=== PATIENT | male | born 1980 | race Caucasian/White ===

== ENCOUNTER 2017-12-11 23:02 | Emergency (ER) | payer OTHER ==
[~2017-12-11] VITALS: Ht 177.8 cm; Wt 114.7 kg
[2017-12-11] MEDS ORDERED: NORCO 5-325 TA1 EACH PO (23:19)
[2017-12-11] MEDS ORDERED: PREDNISONE 10 M10 MG PO (23:43)
[2017-12-11] MEDS ORDERED: INDOMETHACIN 5050 M1 PO (23:43)
[2017-12-11] MEDS ORDERED: NORCO 7.5-3251 EACH PO (23:43)
[2017-12-12 00:51] VITALS: BP 176/86
== END 2017-12-12 00:52 | disposition home or self-care (01) ==
LOC: M.ERS 23:02
DX: M10.9 Gout, unspecified (principal)

== ENCOUNTER 2020-04-13 20:24 | Inpatient (IN) | payer OTHER ==
[~2020-04-13] VITALS: Ht 175.3 cm; Wt 124.3 kg
[~2020-04-13 20:24] MED LIST: INDOMETHACIN 5050 M1 PO; NORCO 5-325 TA1 EACH PO; NORCO 7.5-3251 EACH PO; PREDNISONE 10 M10 MG PO
[2020-04-13 20:28] VITALS: BP 120/96
[2020-04-13 20:49] LABS: HEMATOCRIT 45.5 % (42.0-52.0); HEMOGLOBIN 15.4 gm/dL (14.0-18.0); MCH 29.6 pg (26.0-34.0); MCHC 33.8 g/dL (28.0-37.0); MCV 87.5 fL (80.0-100.0); NUCLEATED RBCS 0 /100WBC; PLATELET COUNT* 344 thou/uL (150-400); WBC 23.9 thou/uL (4.0-11.0)
[2020-04-13 20:57] LABS: CALCIUM 9.9 mg/dL (8.5-10.1); POTASSIUM 3.6 mmol/L (3.5-5.1)
[2020-04-13 20:59] LABS: INR 0.9; PROTIME 9.9 Seconds (9.20-11.50)
[2020-04-13 21:07] LABS: ALBUMIN 4.3 g/dL (3.4-5.0); MAGNESIUM 2.2 mg/dL (1.8-2.4); TOTAL BILIRUBIN 0.3 mg/dL (<0.1-1.0); TOTAL PROTEIN 7.8 g/dL (6.4-8.2)
[2020-04-13 21:10] VITALS: BP 127/79
[2020-04-13 21:15] LABS: ABSOLUTE EOSINOPHILS 0.5 thou/uL (0.0-0.7); ABSOLUTE LYMPHOCYTES 9.8 thou/uL (0.8-5.3); ABSOLUTE MONOCYTES 1.2 thou/uL (0.0-1.2); ABSOLUTE NEUTROPHILS 12.4 thou/uL (1.6-8.1); PLATELET ESTIMATE ADEQUATE
[2020-04-13 22:46] VITALS: BP 134/89
[2020-04-13 23:09] VITALS: BP 121/81
[2020-04-14] VITALS (17 sets, daily range): BP systolic 102–153; BP diastolic 40–91
[2020-04-14 02:34] LABS: HEMATOCRIT 44.8 % (42.0-52.0); HEMOGLOBIN 14.8 gm/dL (14.0-18.0); MCH 29.2 pg (26.0-34.0); MCHC 33.1 g/dL (28.0-37.0); MCV 88.3 fL (80.0-100.0); MPV 7.8 fl. (7.2-11.1); RBC 5.07 mil/uL (4.50-6.00); RDW-CV 14.3 % (10.5-14.5); WBC 16.5 thou/uL (4.0-11.0)
[2020-04-14 03:53] LABS: ALBUMIN 3.9 g/dL (3.4-5.0); ALKALINE PHOSPHATASE 93 U/L (46-116); ANION GAP 11 mmol/L (7-16); BUN 22 mg/dL (7-18); CALCIUM 9.3 mg/dL (8.5-10.1); CHLORIDE 103 mmol/L (98-107); CHOLESTEROL 145 mg/dL (<200); CO2 26 mmol/L (21-32); GLUCOSE 102 mg/dL (70-99); HDL CHOLESTEROL 34 mg/dL (>40); LDL CHOLESTEROL 82 mg/dL (<100); POTASSIUM 4.4 mmol/L (3.5-5.1); SGOT 496 U/L (15-37); SGPT 102 U/L (30-65); SODIUM 140 mmol/L (136-145); TC:HDL 4.3 Ratio (Not establshd); TOTAL BILIRUBIN 0.4 mg/dL (<0.1-1.0); TOTAL PROTEIN 6.6 g/dL (6.4-8.2); TRIGLYCERIDE 146 mg/dL (<150); VLDL 29 mg/dL (<40)
[2020-04-14 04:07] LABS: SERUM ASSESSMENT CLEAR
--- NOTE | 2020-04-14 09:03 | EKG ---
[place] [address] ELECTROCARDIOGRAM REPORT Name: GEORGES SYED Room: [address] IN ..#: [id number] Admission: 04/13/20 Attend Phys: Sean Caballero, Discharge: Date of : 76 Date of Service: 04/13/202032 Report #: [id number] THIS REPORT FOR: //name// [facility] ED Test Date: 2020-04-13 Test Time: 20:33:08 Pat Name: GEORGES SYED Department: Room: [facility] Gender: M Special Needs Nanny: : 1980 Requested By: Destiny Chung Order Number: [id number] MD: Dani Fox Measurements Intervals [place] Rate: 75 P: 67 [place]: 153 QRS: -27 QRSD: 142 T: -11 QT: 415 QTc: 464 Interpretive Statements Sinus rhythm Nonspecific intraventricular conduction delay Anterolateral infarct, acute (LAD) No previous ECG available for comparison Electronically Signed On 04-14-2020 9:03:43 TEAROOM HOST/HOSTESS by Dani Fox [email or web address] <ELECTRONICALLY SIGNED> By: Dani Fox MD, FACC 04/14/20902 32 32 Dani Fox MD, [facility] /EPI
--- NOTE | 2020-04-14 09:07 | EKG ---
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: [facility] : 1980 Requested By: Sean Caballero Order Number: [id number] Reading MD: Dani Fox Measurements Intervals [place] Rate: 81 P: 52 [place]: 159 QRS: 92 QRSD: 86 T: 77 QT: 397 QTc: 461 Interpretive Statements Sinus rhythm Probable anteroseptal infarct, recent Lateral leads are also involved Compared to ECG 04/13/2020 20:33:08 Intraventricular conduction delay no longer present Myocardial infarct finding still present Electronically Signed On 04-14-2020 9:07:12 RANGE TECHNICIAN by Dani Fox [email or web address] <ELECTRONICALLY SIGNED> By: Dani Fox MD, FACC 04/14/20 0907 0637 0637 Dani Fox MD, FACC /EPI
--- NOTE | 2020-04-14 11:26 | CARD ---
[address] [address] CARDIAC CATH REPORT Name: GEORGES SYED Room: [address] IN [facility]#: [id number] Admission: 04/13/20 Attend Phys: Sean Caballero MD Discharge: Date of : 76 Report #: [id number] THIS REPORT FOR: cc: FAM - No family physician/PCP FAM - No family physician/PCP ~ Brandyn Gonzalez MD APPROVED REPORT Study performed: 04/13/2020 20:56:58 Patient Details Patient Status: ED STEMI Room #: ICU-7 The patient is a 40 year-old male Event Personnel Brandyn Gonzalez Director Of Golf, Tanna Abdi RN Biophysics Teacher, Sandra Rae RTR Scrub, Yue Delacruz RTR Monitor Procedures Performed Art Access - R radial artery , Left Heart Cath w/or w/o Coronaries LHC, DILIP Place w/wo Plasty Single LAD STEMI, Hemostasis with Hemoband Indication Abnormal ECG, STEMI (>0 to less than or equal to 6 hours), Dyspnea, Chest pain Risk Factors Obesity, Hypercholesterolemia, Tobacco History () Admission/Lab Medications/Medications given during procedure Heparin IV 6000, Aggrastat IV Bolus 12.5 ml Procedure Narrative The patient was brought emergently to the Cardiac Catheterization Laboratory and was prepped and draped in a sterile manner. The right wrist was infiltrated with 1% Lidocaine subcutaneous anesthesia. A 6F Slender [place] sheath was inserted into the right radial artery. Coronary angiography was performed using coronary diagnostic catheters. The right coronary system was accessed and visualized with a 6F JR4 catheter. The left coronary system was accessed and visualized with a 6F XB 3.5 Guide catheter. The left ventricle was accessed and visualized with a 6[place] [address] CARDIAC CATH REPORT Name: GEORGES SYED Room: [address]#: [id number] Admission: 04/13/20 Attend Phys: Sean Caballero MD Discharge: Date of : 76 Report #: [id number] ventricular/Aortic Valve gradient assessed via catheter pullback. Left ventriculogram was performed in OROZCO projection. Closure device was deployed with a 6 Fr Vasc-Band Lng 27cm. The patient tolerated the procedure well and there were no complications associated with the procedure. There was no hematoma. Intraoperative Conscious Sedation Sedation start time: 21:18 Case end Time: 21:55 No sedation given. Fluoro Time: 13.8 minutes Dose: DAP 750413 cGycm2 2495 mGy Contrast Type and Amount: Visipaque 265 ml Coronary Angiography The patient's coronary anatomy is right dominant. Diagnostic Cath Left Main The left main artery is a patent vessel, with no flow-limiting lesions. LAD There is a total occlusion of the proximal LAD segment. Diagonal 1 There is a moderate-sized caliber vessel, patent with no flow-limiting lesions. Circumflex There is mild disease in the proximal left circumflex, 30%. OM1 There is an ostial stenosis of 40%. OM2 This is a small to moderate size caliber vessel, patent with no flow-limiting lesions. Right Coronary The RCA is a dominant vessel with mild disease in the midsegment. R PDA There is a ostial stenosis of 30%. RPLV This is a small to moderate size caliber vessel, patent with no flow-limiting lesions. Left Ventriculography The left ventricle is normal in size with Diminished contractility. The left ventricular ejection fraction is estimated to be 35%. Left ventricular wall motion abnormalities are present. There is hypokinesis of the anterior lateral and apical segments. Hemodynamics The aortic pressure is 100/68 mmHg with a mean of 85 mmHg. The left ventricular pressure is 101/12 mmHg with a mean of mmHg. The left ventricular end diastolic pressure is 25 [place] [address] CARDIAC CATH REPORT Name: YAHAIRAGEORGES Room: [address] IN [facility].#: [id number] Admission: 04/13/20 Attend Phys: Sean Caballero MD Discharge: Date of : 76 Report #: [id number] PCI Technique Lesion Anticoagulation was achieved with Heparin. Patient was given Aggrastat IV bolus 12.5 ml. Patient was preloaded with Heparin IV 3000 units. Percutaneous coronary intervention was performed on the proximal left anterior descending artery segment. The lesion stenosis prior to intervention was 100% with EFRA 0 flow. A 6FR XB 3.5 100CM Guide Catheter was used to engage the lm ostium. A Luge Wire 182 Interventional Guidewire was used to cross the lesion. BALLOON DILATION A Balloon catheter Trek RX 2.5 X 12 was inserted and inflated up to 12.00atm for 13seconds. STENT DEPLOYMENT A drug-eluting stent Zach RX Stent 3.0X15mm was inserted and inflated up to 16.00atm for 26seconds. POST STENT DEPLOYMENT BALLOON DILATION A Balloon catheter [place] Trek RX 3.5 X 8 was inserted and inflated up to 18.00atm for 17seconds. Additional Inflation: 18.00atm for 8seconds. Additional Inflation: 12.00atm for 14seconds. Final angiography reveals 0 % stenosis with EFRA 3 flow. Conclusion 1. Successful PCI with placement of a drug-eluting into the total occlusion in the proximal LAD segment, with sikhism of blood flow to the mid/distal LAD and first diagonal artery. 2. There is mild to moderate disease in the RCA and left circumflex arteries. 3. There is moderately severe LV dysfunction. 4. Recommend dual antiplatelet therapy and aggressive risk factor management. <ELECTRONICALLY SIGNED> By: Brandyn Gonzalez MD 04/14/20 1126 1126 1126Brandyn Gonzalez MD /INF
--- NOTE | 2020-04-14 15:53 | EKG ---
[place] [address] ELECTROCARDIOGRAM REPORT Name: GEORGES SYED Room: [address] ADM IN ..#: [id number] Admission: 04/13/20 Attend Phys: Sean Caballero, Discharge: Date of : 76 Date of Service: 04/14/20 1048 Report #: [id number] THIS REPORT FOR: //name// [facility] Test Date: 2020-04-14 Test Time: 10:48:58 Pat Name: GEORGES SYED Department: Room: [address] Gender: M Access Lead: UNKNOWN : 1980 Requested By: Laura Rosenberg Order Number: [id number] Jarrod MD: Dani Fox Measurements Intervals [place] Rate: 72 P: 11 ME: 166 QRS: 91 QRSD: 84 T: 97 QT: 459 QTc: 503 Interpretive Statements Incomplete analysis due to missing data in precordial lead(s) Sinus rhythm Anterolateral infarct, acute (LAD) Prolonged QT interval Baseline wander in lead(s) V6 Missing lead(s): V2,V3 Compared to ECG 04/14/2020 06:37:39 Prolonged QT interval now present Myocardial infarct finding still present Electronically Signed On 04-14-2020 15:53:07 USER INTERFACE DEVELOPER by Dani Fox [email or web address] <ELECTRONICALLY SIGNED> By: Dani Fox MD, [facility] 04/14/20 1553 1048 1048 Dani Fox MD, [facility] /EPI
[2020-04-15] VITALS (8 sets, daily range): BP systolic 103–131; BP diastolic 53–78
[2020-04-15 04:25] LABS: HEMATOCRIT 45.3 % (42.0-52.0); MCH 29.3 pg (26.0-34.0); MCHC 33.2 g/dL (28.0-37.0); MCV 88.3 fL (80.0-100.0); MPV 8.1 fl. (7.2-11.1); RBC 5.13 mil/uL (4.50-6.00); RDW-CV 14.2 % (10.5-14.5); WBC 13.3 thou/uL (4.0-11.0)
[2020-04-15 04:46] LABS: CALCIUM 9.6 mg/dL (8.5-10.1); POTASSIUM 3.7 mmol/L (3.5-5.1)
[2020-04-15 05:16] LABS: TROPONIN-I LEVEL 66.18 ng/mL (<0.06)
--- NOTE | 2020-04-15 09:27 | CON ---
[address] [address] CONSULTATION Name: GEORGES SYED Room: [address] IN .R.#: [id number] Admission: 04/13/20 Attend Phys: Sean Caballero MD Discharge: Date of : 76 Report #: [id number] THIS REPORT FOR: cc: FAM - No family physician/PCP FAM - No family physician/PCP ~ Brandyn Gonzalez MD DATE OF SERVICE: 04/13/2020 CARDIOLOGY CONSULTATION INDICATION: Chest pain. HISTORY OF PRESENT ILLNESS: This is a 40-year-old gentleman with a history of tobacco use, presenting with acute onset of chest pain. He reports having chest ache on and off throughout the day. About 30 minutes prior to presentation to the ER, he had severe crushing chest pain, 10/10 in the substernal area with numbness in his left arm. He developed nausea with vomiting x 2. In the ER, he was found to be diaphoretic. There is no history of fever, diarrhea or orthopnea. In the ER, the ECG revealed acute ST segment elevation in the precordial leads, I and aVL. He was treated with heparin, aspirin and Brilinta. ALLERGIES: None. PAST MEDICAL HISTORY: Denies diabetes or hypertension. MEDICATIONS: None. SOCIAL HISTORY: At least 1 pack per day smoker. FAMILY HISTORY: Negative for premature CAD. REVIEW OF SYSTEMS: See HPI. PHYSICAL EXAMINATION: VITAL SIGNS: Blood pressure is 120/70, heart rate is 80 beats per minute. GENERAL APPEARANCE: This is an overweight male in mild distress. HEENT: Normocephalic, atraumatic. Oral mucosa moist. NECK: Supple. LUNGS: CTA. CARDIAC: Regular rate and rhythm, S1, S2 positive. ABDOMEN: Soft, nontender. EXTREMITIES: No cyanosis, no edema. LABORATORY VALUES: ECG reveals sinus rhythm, right bundle-branch block, [place] [address] CONSULTATION Name: GEORGES SYED Room: [address]#: [id number] Admission: 04/13/20 Attend Phys: Sean Caballero MD Discharge: Date of : 76 Report #: [id number] segment elevation in the precordial leads, I and aVL with reciprocal ST segment depression in the inferior leads. ASSESSMENT AND PLAN: 1. Acute anterolateral myocardial infarction. Treated with heparin, aspirin and Brilinta. He will be taken emergently to the cardiac laboratory inspector. 2. Tobacco use, complete smoking cessation is advised. 3. Hypercholesterolemia, will initiate statin therapy. <ELECTRONICALLY SIGNED> By: Brandyn Gonzalez MD 04/15/20 0927 2208 [id number] Gonzalez MD /nt
[2020-04-16] VITALS: BP 79/44
[2020-04-16 04:00] VITALS: BP 96/54
[2020-04-16 08:00] VITALS: BP 117/70
[2020-04-16 11:58] VITALS: BP 99/63
[2020-04-16 12:27] VITALS: BP 99/63
== END 2020-04-16 13:12 | disposition home or self-care (01) | DRG 246 ==
LOC: M.ERS 20:24 → M.TBA-CV 21:04 → M.ICU 21:04 → M.TBA-ER 21:04 → M.2W 21:04 → M.ICU 22:23 → M.2W 04-14 17:27
PROVIDERS: Emergency Medicine; Family Medicine; Internal Medicine Cardiovascular Disease; ADMIT Internal Medicine; ATTEND Internal Medicine
PROC: B215YZZ Fluoroscopy of Left Heart using Other Contrast (ICD-10-PCS; principal; 2020-04-13)
PROC: 4A023N7 Measurement of Cardiac Sampling and Pressure, Left Heart, Percutaneous Approach (ICD-10-PCS; principal; 2020-04-13)
PROC: 027034Z Dilation of Coronary Artery, One Artery with Drug-eluting Intraluminal Device, Percutaneous Approach (ICD-10-PCS; principal; 2020-04-13)
PROC: B211YZZ Fluoroscopy of Multiple Coronary Arteries using Other Contrast (ICD-10-PCS; principal; 2020-04-13)
DX: I21.09 ST elevation (STEMI) myocardial infarction involving other coronary artery of anterior wall (principal); I50.43 Acute on chronic combined systolic (congestive) and diastolic (congestive) heart failure; I30.9 Acute pericarditis, unspecified; I31.9 Disease of pericardium, unspecified; Z68.41 Body mass index [BMI] 40.0-44.9, adult; E78.00 Pure hypercholesterolemia, unspecified; I25.5 Ischemic cardiomyopathy; I25.10 Atherosclerotic heart disease of native coronary artery without angina pectoris; E66.01 Morbid (severe) obesity due to excess calories; Z20.822 Contact with and (suspected) exposure to COVID-19; Z79.899 Other long term (current) drug therapy; Z28.21 Immunization not carried out because of patient refusal

== ENCOUNTER 2020-07-01 07:50 | Observation (INO) | payer OTHER ==
[2020-07-01] VITALS (13 sets, daily range): BP systolic 99–123; BP diastolic 54–76
[~2020-07-01] VITALS: Ht 175.3 cm; Wt 109.8 kg
--- NOTE | ~2020-07-01 | D ---
[address] [address] DISCHARGE SUMMARY Name: GEORGES SYED Stephany Room: [address] M.R.#: [id number] Admission: 07/01/20 Attend Phys: Georges Brady MD, Discharge: Date of : 76 Report #: [id number] THIS REPORT FOR: cc: Tristan Li MD, Tuongvan T. MD Holkins, John M. MD [facility] ~ DOC #: [id number] cc: Alfonzo Sesay MD [facility] Georges Brady MD [facility] DATE OF DISCHARGE: 07/02/2020 FINAL DISCHARGE DIAGNOSES: 1. Abnormal nuclear stress test. 2. Coronary artery disease. 3. Status post recent anterior wall infarction. 4. Status post PCI to the LAD and right coronary artery on 07/01/2020. 5. Ischemic cardiomyopathy. 6. Increased cholesterol. 7. Hypertension. PROCEDURES: 07/01/2020 -- left heart catheterization, selective coronary arteriography and percutaneous coronary intervention with drug-eluting stents deployed in the mid LAD and posterolateral branch of the dominant right coronary artery. HOSPITAL COURSE: The patient is a very pleasant 40-year-old male with coronary artery disease, status post recent anterior infarction interrupted by PCI to the LAD. Subsequent to that, he did develop chest discomfort. A nuclear stress test revealed a large induced inferior defect. Apical scarring was noted. In this context, I performed recatheterization on 07/01/2020 which revealed a widely patent proximal LAD stent with 80% mid LAD stenosis. There was 80% narrowing at the takeoff of a prominent posterolateral branch of the dominant right coronary artery. I deployed one 2.0 x 12 mm [place] drug-eluting stent in the mid LAD and one 2.0 x 8 mm Zach drug-eluting stent at the origin of the posterolateral branch of the dominant right coronary artery with 0% residual narrowing at both sites following stent deployment and EFRA-3 flow in the distal vessel Troponin franco minimally to 0.57. Additional labs revealed sodium 141, potassium 4.4, BUN 14, creatinine 0.8, glucose 104. Hemoglobin 13.6, white blood cell count 8900 with 189,000 platelets. He ambulated in the [place] [address] DISCHARGE SUMMARY Name: GEORGES SYED Room: [address] Vinod Hayes#: [id number] Admission: 07/01/20 Attend Phys: Georges Brady MD, Discharge: Date of : 76 Report #: [id number] He was discharged home on the following medications: Aspirin 81 mg daily, atorvastatin 40 mg daily, furosemide 20 mg daily, losartan 25 mg daily, metoprolol succinate 25 mg daily, rivaroxaban or Xarelto 20 mg daily to be resumed on 07/03 with aspirin to be discontinued on that date and ticagrelor 90 mg b.i.d. with an additional 90 mg dose given periprocedurally. The patient will be seen in followup by Dr. Sesay in 6 weeks and that followup has been scheduled for 08/24/2020. Therefore, the patient is discharged home in stable condition on the aforementioned medications with followup as described above. Georges Brady MD [facility] By: 0828 0853Josim Brady MD, [facility] /nt
[~2020-07-01 07:50] MED LIST changes: +ASA81BEC PO; +BRILINTA90 MG PO; +COZAAR 25 MG TA25 M2 PO; +FUROSEMIDE 20 M20 MG PO; +LIPITOR40 MG PO; +TOPROL XL25 MG PO; +XARELTO20 MG PO
[2020-07-01 08:26] LABS: HEMATOCRIT 44.4 % (42.0-52.0); HEMOGLOBIN 14.8 gm/dL (14.0-18.0); MCH 29.6 pg (26.0-34.0); MCHC 33.3 g/dL (28.0-37.0); MCV 88.8 fL (80.0-100.0); MPV 8.2 fl. (7.2-11.1); RDW-CV 13.9 % (10.5-14.5); WBC 9.1 thou/uL (4.0-11.0)
[2020-07-01 08:36] LABS: ANION GAP 8 mmol/L (7-16); BUN 16 mg/dL (7-18); CHLORIDE 103 mmol/L (98-107); CO2 27 mmol/L (21-32); CREATININE 0.8 mg/dL (0.6-1.3); GLUCOSE 114 mg/dL (70-99); POTASSIUM 4.6 mmol/L (3.5-5.1); SODIUM 138 mmol/L (136-145)
[2020-07-01 08:38] LABS: APTT 23.9 Seconds (25.0-31.3); INR 0.9
[2020-07-01 08:40] LABS: ALBUMIN 4.2 g/dL (3.4-5.0); ALKALINE PHOSPHATASE 119 U/L (46-116); CHOLESTEROL 69 mg/dL (<200); HDL CHOLESTEROL 33 mg/dL (>40); LDL CHOLESTEROL 23 mg/dL (<100); SGOT 19 U/L (15-37); SGPT 38 U/L (30-65); TC:HDL 2.1 Ratio (Not establshd); TOTAL BILIRUBIN 0.5 mg/dL (<0.1-1.0); TOTAL PROTEIN 7.7 g/dL (6.4-8.2); TRIGLYCERIDE 66 mg/dL (<150); VLDL 13 mg/dL (<40)
[2020-07-01 08:42] LABS: SERUM ASSESSMENT Clear
--- NOTE | 2020-07-01 18:00 | NUR ---
Pt on bedrest until 1644. Rt groin stable. VSS. Up to chair w/o difficulty. Pt had headache while on bedrest, but resolved some with Tylenol, then completely when able to sit up. Voiding without difficulty. Reports he is hopeful of being discharged tomorrow morning. Will continue to monitor.
[2020-07-02 03:42] VITALS: BP 110/69
--- NOTE | 2020-07-02 05:53 | NUR ---
ASSUMED PATIENT CARE AT 1900. PATIENT ALERT AND ORIENTED TIMES FOUR. NO COMPLAINTS OF PAIN OR DISCOMFORT NOTED. RN ASSESSMNET COMPLETED CHARTED. RIGHT GROIN SITE DRESSING C/D/I.
[2020-07-02 05:57] LABS: HEMATOCRIT 40.5 % (42.0-52.0); HEMOGLOBIN 13.6 gm/dL (14.0-18.0); MCH 29.6 pg (26.0-34.0); MCHC 33.6 g/dL (28.0-37.0); MCV 88.2 fL (80.0-100.0); MPV 8.2 fl. (7.2-11.1); RBC 4.59 mil/uL (4.50-6.00); RDW-CV 13.7 % (10.5-14.5); WBC 8.9 thou/uL (4.0-11.0)
[2020-07-02 06:22] LABS: ALBUMIN 3.7 g/dL (3.4-5.0); CALCIUM 9.1 mg/dL (8.5-10.1); CREATININE 0.8 mg/dL (0.6-1.3); POTASSIUM 4.4 mmol/L (3.5-5.1); TOTAL BILIRUBIN 0.5 mg/dL (<0.1-1.0); TOTAL PROTEIN 6.8 g/dL (6.4-8.2); TROPONIN-I LEVEL 0.57 ng/mL (<0.06)
[2020-07-02] MEDS ORDERED: BAYER CHEWABLE81 MG PO (09:18)
--- NOTE | 2020-07-02 10:24 | CARD ---
[address] [address] CARDIAC CATH REPORT Name: GEORGES SYED Room: [address] Vinod M.[place]#: [id number] Admission: 07/01/20 Attend Phys: Georges Brady MD, Discharge: Date of : 76 Report #: [id number] THIS REPORT FOR: cc: Tristan Li MD, Tuongvan T. MD Holkins, John M. MD [facility] ~ APPROVED REPORT Study performed: 07/01/2020 08:44:21 Patient Details Patient Status: Out-Patient Room #: The patient is a 40 year-old male Event Personnel Sandra Rae RTR Caitlyn Lang John Tube Room Cashier, Estephanie Yu RN Ampoule Inspector, Yue Delacruz RTR Monitor Procedures Performed Art Access - R femoral artery* Left Heart Cath w/or w/o Coronaries DILIP Place w/wo Plasty Single LAD DILIP Place w/wo Plasty Single ANNELISE Hemostasis w/ Angioseal Indication Unstable angina , Positive stress test, Chest pain Risk Factors Hypercholesterolemia, Hypertension Previous Procedures/Diagnoses Previous PCI, Previous IL Admission/Lab Medications/Medications given during procedure Aspirin, Thrombin Inhibitors, Platelet Aff. Inhib. Procedure Narrative The patient was brought electively to the Cardiac Catheterization Laboratory and was prepped and draped in a sterile manner. The right femoral was infiltrated with 2% Lidocaine subcutaneous anesthesia. IV conscious sedation was used throughout procedure with appropriate monitoring and was performed in the presence of a registered nurse who was an independent trained observer other than the physician performing the procedure. A [place] 6 FR sheath was inserted into the right femoral artery. Coronary angiography [place] [address] CARDIAC CATH REPORT Name: GEORGES SYED Room: [address] Vinod Hayes#: [id number] Admission: 07/01/20 Attend Phys: Georges Brady MD, Discharge: Date of : 76 Report #: [id number] coronary diagnostic catheters. The right coronary system was accessed and visualized with a 3DRC 5fr catheter. The left coronary system was accessed and visualized with a JL4 catheter. The left ventricle was accessed and visualized with a Diagnostic catheter. Left ventriculogram was performed in OROZCO projection. Closure device was deployed with a Fr Angioseal. The patient tolerated the procedure well and there were no complications associated with the procedure. There was no hematoma. Intraoperative Conscious Sedation Sedation start time: 9:13 Case end Time: 10:39 Fentanyl 25 mcg Versed 2 mg Fluoro Time: 19.8 minutes Dose: DAP 874179 cGycm2 3912 mGy Contrast Type and Amount: Omnipaque 350 ml Diagnostic Cath Left Main 0% narrowing LAD Widely patent proximal LAD stent with 80% mid LAD stenosis Circumflex Nondominant vessel with 40% proximal and mid vessel narrowing Right Coronary Dominant vessel with 80% focal stenosis at the takeoff of the posterior lateral branch of the dominant right coronary artery Left Ventriculography Left Ventriculography was not performed. Hemodynamics The aortic pressure is 109/62 mmHg with a mean of 82 mmHg. The left ventricular pressure is 119/7 mmHg with a mean of mmHg. The left ventricular end diastolic pressure is 16 mmHg. There was no gradient across the aortic valve upon pullback. PCI Technique Lesion Patient was preloaded with Angiomax IV 16.5 ml. Percutaneous coronary intervention was performed on the mid left anterior descending artery segment. The lesion stenosis prior to intervention was 80% with EFRA 3 flow. A 6FR [place] JL4.0 Guide Catheter was used to engage the ostium. A IG: BMW 190cm Interventional Guidewire was used [place] [address] CARDIAC CATH REPORT Name: GEORGES SYED Room: [address] Abigail#: [id number] Admission: 07/01/20 Attend Phys: Georges Brady MD, Discharge: Date of : 76 Report #: [id number] BALLOON DILATION A Balloon catheter Mini Trek RX 2.0 X 8 was inserted and inflated up to 14.00atm for 14seconds. STENT DEPLOYMENT A drug-eluting stent [place] RX Stent 2.0X12mm was inserted and inflated up to 12.00atm for 13seconds. Additional Inflation: 16.00atm for 10seconds. Additional Inflation: 18.00atm for 12seconds. Final angiography reveals 0 % stenosis with EFRA 3 flow. PCI Technique Lesion 2 Percutaneous Coronary Intervention was performed on the Proximal posterior lateral branch of the dominant right coronary artery. The lesion stenosis prior to intervention was 80% with EFRA 3 flow. A 6F 3DRC Guide Catheter was used to engage the ostium. A IG: [place] 190cm Interventional Guidewire was used to cross the lesion. Stent Deployment A drug-eluting stent [place] RX Stent 2.0X8mm was inserted and inflated up to 10.00atm for 13seconds. Additional Inflation: 14.00atm for 7seconds. Additional Inflation: 18.00atm for 11seconds. Additional Inflation: 20 jaison for 9 sec Final angiography reveals 10 % stenosis with EFRA 3 flow. Conclusion 1. Significant coronary artery disease characterized by the following: A widely patent proximal LAD stent with 80% focal mid LAD stenosis B 40% narrowing in the proximal and mid portions of the nondominant circumflex C dominant right coronary artery with 80% narrowing the proximal portion of the posterior lateral branch 2. Mild elevation of left ventricular end-diastolic pressure at rest 3. Successful PCI with deployment of a drug-eluting stent at the site of 80% mid LAD stenosis with 0% residual narrowing and EFRA-3 [place] [address] CARDIAC CATH REPORT Name: GEORGES SYED Room: [address] Vinod Hayes#: [id number] Admission: 07/01/20 Attend Phys: Georges Brady MD, Discharge: Date of : 76 Report #: [id number] 4. Successful PCI with deployment of drug-eluting stent at the site of 80% proximal stenosis in the prominent posterior lateral branch of the dominant right coronary artery with 10% residual narrowing and EFRA-3 flow the distal vessel Recommendations Cardiac Risk Reduction Program Aggressive Medical Therapy Medications Administered Ticagrelor Diagnostic Cath Approved by: Georges Brady MD Date/Time: 07/02/2020 10:22:37 <ELECTRONICALLY SIGNED> By: Georges Brady MD, FACC 07/02/20 1024 1024 1024Josim Brady MD, FACC /INF
[2020-07-02 10:36] VITALS: BP 104/60
--- NOTE | 2020-07-04 10:31 | EKG ---
[place] [address] ELECTROCARDIOGRAM REPORT Name: GEORGES SYED Room: [address]#: [id number] Admission: 07/01/20 Attend Phys: Andera Campbell Discharge: 07/02/20 Date of : 76 Date of Service: 07/01/20 0829 Report #: [id number] THIS REPORT FOR: //name// [facility] Test Date: 2020-07-01 Test Time: 08:29:11 Pat Name: GEORGES SYED Department: Room: [facility] Gender: M Sales Contractor: SHAISTA : 1980 Requested By: Georges Brady Order Number: [id number] Reading MD: Agustin Carmichael Measurements Intervals [place] Rate: 55 P: 31 [place]: 178 QRS: 71 QRSD: 83 T: 95 QT: 381 QTc: 365 Interpretive Statements Sinus rhythm Anteroseptal infarct, old Nonspecific T abnormalities, lateral leads Minimal ST elevation, inferior leads Compared to ECG 04/14/2020 10:48:58 Prolonged QT interval no longer present Myocardial infarct finding still present Electronically Signed On 07-04-2020 10:31:17 CDT by Agustin Carmichael [email or web address] <ELECTRONICALLY SIGNED> By: Agustin Carmichael MD, [facility] 07/04/20 1031 8 8 Agustin Carmichael MD, [facility] /EPI
--- NOTE | 2020-07-04 10:38 | EKG ---
[place] [address] ELECTROCARDIOGRAM REPORT Name: GEORGES SYED Room: [address]#: [id number] Admission: 07/01/20 Attend Phys: Andrea Campbell Discharge: 07/02/20 Date of : 76 Date of Service: 07/01/20 1154 Report #: [id number] THIS REPORT FOR: //name// [facility] Test Date: 2020-07-01 Test Time: 11:54:08 Pat Name: GEORGES SYED Department: Room: [facility] Gender: M Balance Engineer: SHAISTA : 1980 Requested By: Georges Brady Order Number: [id number] Reading MD: Agustin Carmichael Measurements Intervals [place] Rate: 56 P: 26 SC: 171 QRS: 78 QRSD: 84 T: 94 QT: 420 QTc: 406 Interpretive Statements Sinus rhythm Anteroseptal infarct, age indeterminate Lateral leads are also involved Compared to ECG 07/01/2020 08:29:11 Myocardial infarct finding still present ST (T wave) deviation still present Electronically Signed On 07-04-2020 10:38:00 CDT by Agustin Carmichael [email or web address] <ELECTRONICALLY SIGNED> By: Agustin Carmichael MD, FACC 07/04/20 1038 1154 1154 Agustin Carmichael MD, FACC /EPI
== END 2020-07-02 13:13 | disposition home or self-care (01) ==
LOC: M.CL 07:50 → M.TBA-CV 10:52 → M.2W 12:45
PROVIDERS: ADMIT Internal Medicine; ATTEND Internal Medicine
DX: I25.10 Atherosclerotic heart disease of native coronary artery without angina pectoris (principal); Z20.822 Contact with and (suspected) exposure to COVID-19; R94.39 Abnormal result of other cardiovascular function study; I25.5 Ischemic cardiomyopathy; E78.00 Pure hypercholesterolemia, unspecified; I10 Essential (primary) hypertension